=== PATIENT | female | born 1965 | race Caucasian/White ===

== ENCOUNTER 2022-08-25 19:26 | Emergency (ER) | payer BC, SELFPAY ==
[2022-08-25] VITALS (16 sets, daily range): BP systolic 118–146; BP diastolic 72–98; PULSE 47–58; RESP 16–18; TEMP 36.3–36.9; O2SAT 94–98; BMI 32.2
--- NOTE | 2022-08-25 19:45 | CRLHL7_ITS ---
For Patients: As a result of the Cures Act, medical imaging exams and procedure reports are released immediately into your electronic medical record. You may view this report before your referring provider. If you have questions, please contact your health care provider. INDICATION: Left flank pain TECHNIQUE: Axial images were obtained from the diaphragm to the pubic symphysis. Reformats were obtained in the coronal and sagittal plane. IV Contrast: None Oral Contrast: None COMPARISON: None. FINDINGS: Lower chest: Trace basilar discoid atelectasis. Liver: Unremarkable. Normal in size and attenuation. No masses. Gallbladder and bile ducts: Status post cholecystectomy. Spleen: Unremarkable. Normal in size without mass. Pancreas: Unremarkable. No mass or inflammation. Adrenal glands: Unremarkable. No nodules. Kidneys: Mild enlarged left kidney with adjacent fat stranding and moderate proximal hydronephrosis. Obstructing proximal left ureteral stone measuring 4 x 4 millimeters. Vasculature: Atherosclerosis without abdominal aortic aneurysm. GI tract: The stomach is unremarkable. No dilated loops of large or small intestine with colonic diverticulosis noted. Medial deviation of the cecum without evidence of obstruction. Pelvis: Status post hysterectomy. Bones: Mild degenerative disc disease lumbar spine. IMPRESSION: 1. Nephrolithiasis with moderate left hydronephrosis and obstructing proximal left ureteral stone measuring 4 x 4 millimeters. 2. Colonic diverticulosis. Please note that all CT scans at this facility use dose modulation, iterative reconstruction, and/or weight-based dosing when appropriate to reduce radiation dose to as low as reasonably achievable. Dictated by Aleksandar Kimble MD @ 08/25/2022 8:36:19 PM (Electronically Signed)
--- NOTE | 2022-08-25 19:46 | ED_ITS ---
HPI - Abdominal Pain General Chief Complaint: Abdominal Pain Stated Complaint: Sharp pain on left side, nausea Time Seen by Provider: 08/25/22 19:30 History of Present Illness HPI narrative: This 57-year-old female comes in reporting left flank pain into her left abdomen that began about 8 hours prior to arrival. She states that the pain became very intense with associated nausea and vomiting. She took some Tylenol and ibuprofen and her symptoms markedly improved. She returns now because her pain has worsened again. She states that she does have a history of kidney stones and wonders if this is a recurrence. Related Data Home Medications Medication Instructions Recorded Confirmed hydrochlorothiazide 50 mg tablet mg 08/25/22 Previous Rx's Medication Instructions Recorded ketorolac 10 mg tablet 10 mg PO TID 5 days #15 tabs 08/25/22 ondansetron HCl 4 mg tablet 4 mg PO Q6H #20 tabs 08/25/22 tamsulosin 0.4 mg capsule (Flomax) 0.4 mg PO DAILY #10 caps 08/25/22 Allergies Allergy/AdvReac Type Severity Reaction Status Date / Time ampicillin AdvReac Verified 08/25/22 19:38 Review of Systems Status of ROS Reports: 10 or more systems reviewed and unremarkable except as noted in History and below Narrative Constitutional: No fevers, no weight gain or loss. Eyes: No discharge. No vision changes. HENT: No congestion, no sore throat, no ear pain. Cardiovascular: No chest pain, no palpitations. Respiratory: No shortness of breath, no wheezes, no cough. Gastrointestinal: Left flank pain extending into the left abdomen. Nausea with vomiting. Genitourinary: No dysuria, no hematuria. Musculoskeletal: Normal range of motion. Skin: No rashes, no pruritis. Neurological: No dizziness, weakness, sensory change, speech change. Endo/Heme/Allergies: No bruising or bleeding. No polydipsia. Pysch: no suicidality, no anxiety, no insomnia. All other systems reviewed and are negative. PFSH PFS Social History Smoking Status: Never smoker Do you use any of these nicotine containing products: None How often do you have a drink containing alcohol: never How often do you have six or more drinks on one occasion: Never AUDIT-C Alcohol total score: 0 Non-prescribed substance use: denies use Exam Narrative: Exam Narrative: Constitutional: Well-developed, well-nourished, no acute distress. HEENT: Normocephalic, atraumatic. Neck: Normal range of motion. Nontender. Supple. Heart: Intact distal pulses. Lungs: No chest discomfort. No wheezes, rhonchi, or rales. Abdomen: Left flank pain and left-sided abdominal pain. No rebound tenderness. Back: Normal range of motion. Extremities: Normal range of motion. No injury. Skin: Intact. No rash. Warm. No erythema or pallor. Neurologic: No altered sensation. No weakness. Alert and oriented. Psychiatric: No suicidality. No anxiety or depression. No insomnia. Nursing notes and vitals signs are reviewed. Const: Vital Signs, click to edit/add: Vital Signs - 24 hr 08/25/22 19:35 Temperature 98.5 F Pulse Rate [Left P ulse Oximeter] 58 L Respiratory Rate 16 Blood Pressure [Ri ght Upper Arm] 136/85 Pulse Oximetry 98 Oxygen Delivery Me thod Room Air Course Vital Signs Vital signs: Initial Vital Signs Temperature 98.5 F 08/25/22 19:35 Temperature Source Temporal Artery Scan 08/25/22 19:35 Pulse Rate 58 L 08/25/22 19:35 Respiratory Rate 16 08/25/22 19:35 Blood Pressure 136/85 08/25/22 19:35 Blood Pressure Mean 102 08/25/22 19:35 Blood Pressure Position Sitting 08/25/22 19:35 Pulse Oximetry 98 08/25/22 19:35 Oxygen Delivery Method 08/25/22 19:35 Vital Signs Temperature 98.5 F 08/25/22 19:35 Pulse Rate 58 L 08/25/22 19:35 Respiratory Rate 16 08/25/22 19:35 Blood Pressure 136/85 08/25/22 19:35 Pulse Oximetry 98 08/25/22 19:35 Oxygen Delivery Method 08/25/22 19:35 Temperature 98.5 F 08/25/22 19:35 Pulse Rate 58 L 08/25/22 19:35 Respiratory Rate 16 08/25/22 19:35 Blood Pressure 136/85 08/25/22 19:35 Pulse Oximetry 98 08/25/22 19:35 Oxygen Delivery Method 08/25/22 19:35 MDM - Abdominal Pain MDM Narrative Medical decision making narrative: This 57-year-old female comes in with left flank and abdominal pain which is suspicious for kidney stone. Urinalysis shows no sign of infection and no hematuria. CT imaging of the abdomen and pelvis does show a 4 mm stone in the left proximal ureter. There is no sign of obstruction or hydronephrosis otherwise. The patient had an IV established where she received 30 mg of Toradol, Dilaudid 0.5 mg, and Zofran 4 mg. Later she received an additional dose of Dilaudid. She is okay to return home and prescriptions are provided for Toradol, [place], Zofran, and Flomax. I advised her to return if pain is not adequately controlled. Hopefully she will be able to pass this on her own without additional help from a urologist but she understands this process as she has been through this situation before. Lab Data Labs: Lab Results 08/25/22 08/25/22 08/25/22 Range/Units 19:45 20:04 20:04 WBC 8.64 (4.50-11.00) K/uL RBC 4.55 (4.00-5.20) m/uL Hgb 13.3 (12.0-16.0) gm/dL Hct 41.0 (33.0-51.0) % MCV 90 (80-100) fL MCH 29 (26-34) pg MCHC 32 (32-36) gm/dL RDW Coeff of [place]ille 12.6 (11.5-15.5) % Plt Count 240 (140-440) K/uL Neut % (Auto) 78.2 H (42.0-72.0) % Lymph % (Auto) 10.9 L (20-44) % [place] % (Auto) 8.7 (0.0-11.0) % Eos % (Auto) 1.9 (0.0-7.0) % Baso % (Auto) 0.2 (0.0-3.0) % Neut # (Auto) 6.80 (1.7-7.0) K/uL Lymph # (Auto) 0.90 (0.90-2.90) K/uL [place] # (Auto) 0.80 (0.00-0.90) K/UL Eos # (Auto) 0.16 (0.00-0.50) K/uL Baso # (Auto) 0.02 (0.00-0.30) K/uL Sodium 138 (135-149) mmol/L Potassium 3.3 L (3.6-5.1) mmol/L Chloride 101 (96-114) mmol/L Carbon Dioxide 27 (20-32) mmol/L BUN 27 (7-30) mg/dL Creatinine 1.3 (0.5-1.5) mg/dL Estimated Creat Clear 49.32 Estimated GFR 49 ml/min Glucose 130 H (60-115) mg/dL Calcium 9.0 (8.4-10.6) mg/dL Urine Color Yellow (Yellow) Urine Appearance Slightly Cloudy A (Clear) Urine pH 5.5 (5.0-8.5) Ur Specific [place] >= 1.030 (1.000-1.030) Urine Protein Negative (Negative) Urine Glucose (UA) Negative (Negative) Urine Ketones Negative (Negative) Urine Blood 1+ A (Negative) Urine Nitrite Negative (Negative) Urine Bilirubin Negative (Negative) Urine Urobilinogen 0.2 (0.2-1.0) Ur Leukocyte Esterase Negative (Negative) Urine RBC 0-2 (0-2) Urine WBC 0-2 (0-5) Ur Squamous Epith Cells Few (None-Few) Urine Bacteria None (None) Imaging Data CT scan - abdomen: Radiologist's impression: 1. Nephrolithiasis with moderate left hydronephrosis and obstructing proximal left ureteral stone measuring 4 x 4 millimeters. Discharge Plan Discharge Clinical Impression: [place], ureteral Patient Disposition: Home w/ Parent or Adult Condition: Stable Additional Instructions: Take medication as needed and indicated. Follow up with MD or return if symptoms are persistent or recurrent and worsening. Prescriptions: New ondansetron HCl 4 mg tablet 4 mg PO Q6H Qty: 20 0RF ketorolac 10 mg tablet 10 mg PO TID 5 Days Qty: 15 0RF tamsulosin [Flomax] 0.4 mg capsule 0.4 mg PO DAILY Qty: 10 2RF No Action hydrochlorothiazide 50 mg tablet Label Comments: TAKE 1/2 TABLET BY MOUTH EVERY DAY Follow Up/Referrals: Roberto Cruz MD [Primary Care Provider] - Stand Alone Forms: [place] Info Instructions
[2022-08-25 20:10] LABS: Basophils Absolute Auto 0.02 K/uL (0.00-0.30); Basophils Percent Auto 0.2 % (0.0-3.0); Eosinophils Absolute Auto 0.16 K/uL (0.00-0.50); Eosinophils Percent Auto 1.9 % (0.0-7.0); Hemoglobin* 13.3 gm/dL (12.0-16.0); Immature Granulocytes Abs Auto 0.01 K/uL (0.00-0.30); Immature Granulocytes Pct Auto 0.1 %; Lymphocytes Percent Auto 10.9 % (20-44); Mean Corpuscular HGB Conc 32 gm/dL (32-36); Mean Corpuscular Hemoglobin 29 pg (26-34); Mean Corpuscular Volume 90 fL (80-100); Monocytes Percent Auto 8.7 % (0.0-11.0); Neutrophils Percent Auto 78.2 % (42.0-72.0); Platelet Count* 240 K/uL (140-440); RDW Coefficient of Variation % 12.6 % (11.5-15.5); Red Blood Count 4.55 m/uL (4.00-5.20); White Blood Count* 8.64 K/uL (4.50-11.00)
[2022-08-25 20:12] LABS: Slide Review Reflex No
[2022-08-25 20:17] LABS: Appearance Urine Slightly Cloudy (Clear); Bilirubin Urine Negative (Negative); Blood Urine 1+ (Negative); Color Urine Yellow (Yellow); Glucose Urine Negative (Negative); Ketones Urine Negative (Negative); Specific Gravity Urine >= 1.030 (1.000-1.030); pH Urine 5.5 (5.0-8.5)
[2022-08-25 20:18] LABS: Leukocyte Esterase Urine Negative (Negative); Nitrite Urine Negative (Negative); Protein Urine Negative (Negative); Urobilinogen Urine 0.2 (0.2-1.0)
[2022-08-25] MEDS: ONDANSETRON 2 MG/ML inj 4 MG IVP (20:19)
[2022-08-25 20:21] LABS: Chloride* 101 mmol/L (96-114)
[2022-08-25 20:22] LABS: Potassium* 3.3 mmol/L (3.6-5.1); Sodium* 138 mmol/L (135-149)
[2022-08-25] MEDS: KETOROLAC 30 MG/ML inj IVP (20:22)
[2022-08-25 20:24] LABS: Creatinine* 1.3 mg/dL (0.5-1.5); Est. Creatinine Clearance* 49.32; Estimated Glomerular Filt Rate 49 ml/min
[2022-08-25] MEDS: HYDROmorphone 0.5 mg/0.5 ml inj IVP (20:24)
[2022-08-25 20:25] LABS: Blood Urea Nitrogen* 27 mg/dL (7-30); Carbon Dioxide* 27 mmol/L (20-32); Glucose* 130 mg/dL (60-115)
[2022-08-25 20:44] LABS: RBC Urine 0-2 (0-2); Squamous Epithelial Cell Urine Few (None-Few); WBC Urine 0-2 (0-5)
--- NOTE | 2022-08-25 21:22 | ED.NURSE ---
pt co chest pain stating started 5 mins ago, MD Salgado updated, POC trop started and EKG given to .
[2022-08-25] MEDS: PANTOPRAZOLE SODIUM 40 MG INJ IVP (21:52)
[2022-08-25] MEDS: GI COCKTAIL (VISC LIDO/ANTACID) 30 ML PO (21:52)
[2022-08-25] MEDS: ASPIRIN 81 MG TAB.CHEW 324 MG PO (21:54)
--- NOTE | 2022-08-25 22:24 | ED.NURSE ---
pt states no relief from GI Cocktail, CP still the same
== END 2022-08-25 23:17 | disposition home or self-care (01) ==
PROVIDERS: Emergency Medicine Emergency Medical Services; Emergency Provider Family Medicine; PCP Family Medicine
DX: N20.1 Calculus of ureter (principal); Z87.442 Personal history of urinary calculi; R07.9 Chest pain, unspecified
CPT/HCPCS: 36415; 74176; 80048; 81001; 84484; 85025; 93005; 96374; 96375; 99284; 99285; A9270; C9113; J1170; J1885; J2405